=== PATIENT | male | born 1955 | race Caucasian/White ===

== ENCOUNTER 2017-09-07 20:54 | Observation (INO) | payer OTHER ==
[~2017-09-07] VITALS: Ht 177.8 cm; Wt 75.0 kg
[~2017-09-07 20:54] MED LIST: ACYC1CAP16 PO; CITA-48 PO; DILA50CH CHEW; HYDR-3533 PO; IBUP600T26 PO; KEPP750T; MELO7.5S; TRAZ100 PO
[2017-09-07 21:23] VITALS: BP 114/76; PULSE 78; RESP 20; TEMP 97.8; O2SAT 99
[2017-09-07] MEDS ORDERED: SODIUM CHLORIDE 0.9% FLUSH 10 ML FLUSH IV FLUSH PRN (22:00)
--- NOTE | 2017-09-07 22:23 | RADRPT ---
EXAM DATE/TIME: 09/07/2017 22:04 [facility] COMPARISON: CT BRAIN W/O CONTRAST, November 30, 2015, 2:26. INDICATIONS : Trauma, fall. RADIATION DOSE: 34.80 CTDIvol (mGy) MEDICAL HISTORY : Seizures. Prior subdural hematoma. SURGICAL HISTORY : None. ENCOUNTER: Initial ACUITY: 1 day PAIN SCALE: 5/10 LOCATION: cranial TECHNIQUE: Multiple contiguous axial images were obtained of the head. Using automated exposure control and adj ustment of the mA and/or kV according to patient size, radiation dose was kept as low as reasonably a chievable to obtain optimal diagnostic quality images. DICOM format image data is available electro nically for review and comparison. FINDINGS: CEREBRUM: Mild ventriculomegaly. No evidence of midline shift, mass lesion, hemorrhage or acute infarction. N o extra-axial fluid collections are seen. There is an old right frontal lobe infarct. POSTERIOR FOSSA: The cerebellum and brainstem are intact. The 4th ventricle is midline. The cerebellopontine angle i s unremarkable. EXTRACRANIAL: Left occipital scalp contusion. SKULL: No acute skeletal abnormality demonstrated. Right craniotomy changes are again noted. CONCLUSION: 1. No bleed or other acute intracranial abnormality. 2. Left occipital scalp hematoma. 3. Old right frontal lobe infarct. 4. Mild diffuse ventriculomegaly has developed since the prior study. Robin Escudero MD on September 07, 2017 at 22:18 Board Certified Radiologist. This report was verified electronically.
--- NOTE | 2017-09-07 22:28 | RADRPT ---
EXAM DATE/TIME: 09/07/2017 22:04 [facility] COMPARISON: CT CERVICAL SPINE W/O CONTRAST, July 27, 2015, 21:21. INDICATIONS : Trauma, fall. RADIATION DOSE: 13.89 CTDIvol (mGy) MEDICAL HISTORY : None SURGICAL HISTORY : None. ENCOUNTER: Initial ACUITY: 1 day PAIN SCALE: 5/10 LOCATION: neck TECHNIQUE: Volumetric scanning of the cervical spine was performed. Multiplanar reconstructions in the sagittal, coronal and oblique axial planes were performed. Using automated exposure control and adjustment o f the mA and/or kV according to patient size, radiation dose was kept as low as reasonably achievable to obtain optimal diagnostic quality images. DICOM format image data is available electronically f or review and comparison. FINDINGS: There is no fracture or subluxation of the cervical spine. Vertebral bodies have normal height. Moderate to severe disc space narrowing with small, broad posterior disc osteophyte complexes and guillermo ateral uncovertebral and facet osteoarthritis noted, moderate at C4/C5, C5/C6 and C6/C7, mild to mode rate at C3/C4. There is left foraminal stenosis at C4/C5 and right foraminal stenosis at C5/C6 and C6 /C7. No high-grade spinal stenosis is demonstrated. Paravertebral soft tissues are within normal limits. CONCLUSION: Intact cervical spine. Multilevel degenerative changes are again noted and appear similar to the [facility] CT. Robin Escudero MD on September 07, 2017 at 22:24 Board Certified Radiologist. This report was verified electronically.
[2017-09-07] MEDS ORDERED: LIDOCAINE HCL 1% PF 30 ML VIAL ONE (22:52)
[2017-09-07 22:59] VITALS: BP 125/82; PULSE 85; RESP 17; O2SAT 98
[2017-09-08] VITALS (7 sets, daily range): BP systolic 101–123; BP diastolic 63–74; PULSE 67–92; RESP 16–18; TEMP 98–99; O2SAT 96–99
[2017-09-08] MEDS ORDERED: GADODIAMIDE PF 287 MG/ML 20 ML VIAL (for RAD MRI) IVCONTRAST ONE (01:29)
[2017-09-08] MEDS ORDERED: levETIRAcetam 500 MG TAB PO ONE (02:30)
[2017-09-08] MEDS ORDERED: traZODone HCL 100 MG TAB PO ONE (02:30)
[2017-09-08] MEDS ORDERED: PHENYTOIN SODIUM 100 MG CAP PO ONE (02:30)
[2017-09-08] MEDS ORDERED: oxyCODONE/ACETAMINOPHEN 5 MG/325 MG TAB PO ONE (02:45)
[2017-09-08 03:04] LABS: AUTOMATED NEUTROPHIL # 7.9 TH/MM3 (1.8-7.7); BASOPHIL # 0.1 TH/MM3 (0-0.2); BASOPHIL % 0.8 % (0.0-2.0); EOSINOPHIL % 0.4 % (0.0-4.0); HEMATOCRIT 38.9 % (39.0-51.0); HEMOGLOBIN 13.2 GM/DL (13.0-17.0); LYMPH % 8.7 % (9.0-44.0); LYMPHOCYTE # 0.9 TH/MM3 (1.0-4.8); MEAN CELL VOLUME 96.8 FL (80.0-100.0); MEAN CORPUSCULAR HEMOGLOBIN 32.9 PG (27.0-34.0); MEAN PLATELET VOLUME 8.6 FL (7.0-11.0); MONO % 10.8 % (0.0-8.0); MONOCYTE # 1.1 TH/MM3 (0-0.9); NEUT % 79.3 % (16.0-70.0); PLATELET COUNT 231 TH/MM3 (150-450); RED BLOOD COUNT 4.02 MIL/MM3 (4.50-5.90); WHITE BLOOD COUNT 9.9 TH/MM3 (4.0-11.0)
[2017-09-08] MEDS ORDERED: SODIUM CHLORIDE 0.9% FLUSH 10 ML FLUSH IV FLUSH PRN (03:30)
[2017-09-08] MEDS ORDERED: NALOXONE HCL 0.4 MG/ML AMP IV PUSH PRN (03:30)
[2017-09-08] MEDS ORDERED: ONDANSETRON HCL 4 MG/2 ML VIAL IVP PRN (03:30)
[2017-09-08 03:31] LABS: ALBUMIN 3.4 GM/DL (3.4-5.0); AST (GOT) 29 U/L (15-37); BICARBONATE 30.1 MEQ/L (21.0-32.0); BLOOD UREA NITROGEN 26 MG/DL (7-18); CALCIUM 7.9 MG/DL (8.5-10.1); CHLORIDE 99 MEQ/L (98-107); CREATININE 1.17 MG/DL (0.60-1.30); GLOMERULAR FILTRATION RATE 63 ML/MIN (>89); GLUCOSE,RANDOM 115 MG/DL (74-106); SODIUM (NA) 137 MEQ/L (136-145)
--- NOTE | 2017-09-08 03:31 | PD ---
HPI . Fall Chief Complaint: Fall Time Seen by Provider: 21:45 Travel History International Travel<30 days: No Contact w/Intl Traveler<30days: No Traveled to known affect area: No History of Present Illness HPI 62-year-old male history of traumatic brain injury from a fall he sustained approximately 4 years ago, presents status post fall this evening landing on his left posterior parietal area Jesus loss of consciousness, significant scalp injury with laceration. Patient notes feeling unsteady of gait lately significant change from his normal. Patient notes mild headache, otherwise denies any focal weakness numbness or tingling. No seizure activity noted, no incontinence no tongue biting. 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 Patient has difficulty in controlling his aggression through speech, however is otherwise an accurate historian. [facility] Past Medical History Narrative Medical Past medical history reviewed Cerebrovascular Accident: Yes (SUBDURAL HEMATOMA) Diminished Hearing: Yes (BISHOP PAIUTE ) Neurologic: Yes (HX SUBDURAL HEMATOMA) Immunizations Current: Yes Seizures: Yes Influenza Vaccination: No Past Surgical History Abdominal Surgery: Yes (HERNIA) Genitourinary Surgery: Yes (VASECTOMY) Neurologic Surgery: Yes (TBI, SUBDURAL HEMATOMA EVACUATION) Other Surgery: Yes (TBI, HERNIA, VASECTOMY) Social History Alcohol Use: Yes (occ) Tobacco Use: No Substance Use: No Allergies-Medications (Allergen,Severity, Reaction): Coded Allergies: sertraline (Unverified Allergy, Unknown, 09/07/17) Reported Meds & Prescriptions Reported Meds & Active Scripts Active Lortab 5 mg/325 mg (Hydrocodone/Acetaminophen 5 mg/325 mg) 1 Tab 1 Tab PO Q4-6H PRN Ibuprofen 600 Mg Tab 600 Mg PO TID PRN Reported Keppra (Levetiracetam) 750 Mg Tab Dilantin Infatabs (Phenytoin) 50 Mg Chw 50 Mg CHEW Meloxicam 7.5 Mg/5 Ml Kacie Trazodone Hcl (Trazodone HCl) 100 Mg Tab 100 Mg PO HS Citalopram Hydrobromide 40 Mg Tab 40 Mg PO DAILY Zovirax 200 Mg Cap (Acyclovir) 200 Mg Cap 200 Mg PO 5 TIMES A DAY Narrative Medication Allergies medications reviewed Review of Systems Except as stated in HPI: all other systems reviewed are Neg General / Constitutional: No: Fever Eyes: No: Visual changes HENT: Positive: Headaches, No: Vertigo, Lightheadedness, Neck Stiffness, Neck Pain Cardiovascular: No: Chest Pain or Discomfort Respiratory: No: Shortness of Breath Gastrointestinal: No: Abdominal Pain Genitourinary: No: Dysuria Musculoskeletal: No: Pain Skin: No Rash Neurologic: Positive: Coordination Problem, Ataxia, Headache, No: Weakness, Dizziness, Focal Abnormalities, Change in Mentation, Slurred Speech, Paresthesia , Incontinence, Seizures, Sensory Disturbance Psychiatric: No: Depression Endocrine: No: Polydipsia Hematologic/Lymphatic: No: Easy Bruising Physical Exam Narrative GENERAL: Awake and alert, oriented 3, no acute distress SKIN: Warm and dry. HEAD: Left occipital parietal scalp contusion with laceration, active bleeding EYES: Pupils equal and round. No scleral icterus. No injection or drainage. ENT: No nasal bleeding or discharge. Mucous membranes pink and moist. NECK: Trachea midline. No JVD. Supple nontender. Clear radiographically and clinically CARDIOVASCULAR: Regular rate and rhythm. S1-S2 no murmurs rubs or gallops RESPIRATORY: No accessory muscle use. Clear to auscultation. Breath sounds equal bilaterally. GASTROINTESTINAL: Abdomen soft, non-tender, nondistended. Hepatic and splenic margins not palpable. MUSCULOSKELETAL: Extremities without clubbing, cyanosis, or edema. No obvious deformities. NEUROLOGICAL: Awake and alert. No obvious cranial nerve deficits. Motor grossly within normal limits. Five out of 5 muscle strength in the arms and legs. Normal speech. PSYCHIATRIC: Labile mood associated with dramatic brain injury by expression only, patient is otherwise cooperative expressing gratitude for his care Data Data Last Documented VS Vital Signs Date Time Temp Pulse Resp B/P (MAP) Pulse Ox O2 Delivery O2 Flow Rate FiO2 09/08/17 01:11 99.0 92 18 112/69 (83) 99 Room Air Orders Orders Blood Glucose (09/07/17 21:46) Ecg Monitoring (09/07/17 21:46) Iv Access Insert/Monitor (09/07/17 21:46) Oximetry (09/07/17 21:46) Sodium Chloride 0.9% Flush (Ns Flush) (09/07/17 22:00) Ct Brain W/O Iv Contrast(Rout) (09/07/17 ) Ct Cerv Spine W/O Contrast (09/07/17 ) Lidocaine Pf 1% Inj (Xylocaine-Mpf 1% In (09/07/17 22:52) Admit Order (Ed Use Only) (09/08/17 01:26) [facility] Medical Decision Making Medical Screen Exam Complete: Yes Emergency Medical Condition: Yes Medical Record Reviewed: Yes Differential Diagnosis Scalp laceration, head injury, ataxia Narrative Course CT head performed no acute intracranial traumatic pathology noted. Patient's ventricles however are larger in size than on prior study. Occipital scalp hematoma noted Procedure: Suture closure of scalp laceration left occipital. Under strict sterile technique, wound was cleansed copiously. ED nursing and tech staff with saline, followed by peroxide and Hibiclens. Local anesthesia 1% 3 cc, 3- 0 Ethilon nylon suture interrupted 4 with closure of stellate wound. Adequate closure and hemostasis. Patient tolerated well. CT head reviewed, patient has relatively new onset ataxia as well as ventriculomegaly as noted on CT versus prior study, possible normal pressure hydrocephalus. Case discussed with hospitalist service, care plan developed. Patient to be admitted for observation status, neurology consult in the a.m. Patient's medical regimen discussed with patient's caregiver review of old on speaker and nurses room, patient given his nighttime meds, RN-year-old recorded patient's current daily medical regimen. Patient admitted under observation Diagnosis Primary Impression: Head injury Qualified Codes: S09.90XA - Unspecified injury of head, initial encounter Additional Impressions: Traumatic brain injury Qualified Codes: S06.9X9S - Unspecified intracranial injury with loss of consciousness of unspecified duration, sequela Occipital scalp laceration Qualified Codes: S01.01XA - Laceration without foreign body of scalp, initial encounter Ataxia Admitting Information Admitting Physician Requests: Observation Jovani Roberts MD Sep 08, 2017 03:31
[2017-09-08] MEDS ORDERED: DILA100C PO ×2 (03:33)
[2017-09-08] MEDS ORDERED: KEPP750T PO (03:33)
[2017-09-08] MEDS ORDERED: TRAZ100T10 PO (03:33)
[2017-09-08] MEDS ORDERED: MELO7.5T27 PO (03:33)
[2017-09-08] MEDS ORDERED: CITA10TA4 PO (03:33)
[2017-09-08 03:34] LABS: ALKALINE PHOSPHATASE 131 U/L (45-117); ALT (GPT) 24 U/L (12-78); PHENYTOIN (DILANTIN) 13.2 MCG/ML (10.0-20.0); TOTAL BILIRUBIN ADULT 0.4 MG/DL (0.2-1.0); TOTAL PROTEIN 6.4 GM/DL (6.4-8.2)
--- NOTE | 2017-09-08 04:27 | HHI.HP ---
[facility] Admission Diagnosis Ventriculomegaly, possible NPH Diagnoses: (1) Cerebral ventriculomegaly (2) NPH (normal pressure hydrocephalus) (3) Occipital scalp laceration Chief Complaint: Fall with scalp laceration Travel History International Travel<30 Days: No Contact w/Intl Traveler <30 Da: No Traveled to Known Affected Are: No History of Present Illness Mr. Bartlett is a 62 y/o male with a history of TBI with subsequent seizures and CVA with residual left sided weakness who presented to the ER on 09/07/16 following a fall at home. He suffered a scalp laceration and presented to the ED. He denies syncopal episode and chest pain or sob prior to fall. A head CT was performed showing mild diffuse ventriculomegaly and the patient also reports increasing sense of imbalance and dizziness as well as multiple falls over the past few weeks and was admitted for observation and neurology consultation to evaluate for NPH. The patient denies any recent fever, chills, chest pain, shortness of breath, nausea, vomiting, or diarrhea. Review of Systems Except as stated in HPI: all other systems reviewed are Neg Past Family Social History Past Medical History TBI following a fall off a ladder 4 years ago Seizures following TBI CVA with residual left sided weakness . Past Surgical History Craniotomy Left knee surgery Hernia repair Vasectomy . Reported Medications Reported Meds & Active Scripts Active Reported Meloxicam 7.5 Mg Tab 7.5 Mg PO DAILY Citalopram (Citalopram Hydrobromide) 10 Mg Tab 10 Mg PO DAILY Keppra (Levetiracetam) 750 Mg Tab 750 Mg PO BID Dilantin (Phenytoin Extended) 100 Mg Cap 100 Mg PO HS Dilantin (Phenytoin Extended) 100 Mg Cap 3 Tab PO DAILY@0600 Trazodone (Trazodone HCl) 100 Mg Tablet 100 Mg PO HS . Allergies: Coded Allergies: sertraline (Unverified Allergy, Unknown, 09/07/17) Family History unable to obtain - patient got increasingly aggressive and angry because I was "asking too many questions" and he was having some difficulty with recall . Social History Alcohol: occasional . Physical Exam Vital Signs Vital Signs Date Time Temp Pulse Resp B/P (MAP) Pulse Ox O2 Delivery O2 Flow Rate FiO2 09/08/17 01:11 99.0 92 18 112/69 (83) 99 Room Air 09/07/17 22:59 85 17 125/82 (96) 98 Room Air 09/07/17 21:23 97.8 78 20 114/76 (89) 99 Physical Exam GENERAL: This is a thin male patient, in no apparent distress.Temporal wasting noted bilaterally. SKIN: No rashes. Cool and dry. Bilateral upper extremities with scattered bruising in various stages of healing. States he's suffered easy bruising since TBI. HEAD: Left occipital laceration with sutures; hemostasis at site, hematoma noted. EYES: No scleral icterus. No injection or drainage. ENT: Nose without bleeding, purulent drainage. NECK: Trachea midline. No JVD. CARDIOVASCULAR: Regular rate and rhythm without murmurs, gallops, or rubs. RESPIRATORY: Clear to auscultation. Breath sounds equal bilaterally. No wheezes , rales, or rhonchi. GASTROINTESTINAL: Abdomen soft, non-tender, nondistended. No guarding. MUSCULOSKELETAL: Extremities without clubbing, cyanosis, or edema. No calf tenderness. NEUROLOGICAL: Awake and alert. Patient got increasingly aggressive and angry and was having some difficulty with recall . Laboratory Laboratory Tests Test 09/08/17 02:50 White Blood Count 9.9 Red Blood Count 4.02 Hemoglobin 13.2 Hematocrit 38.9 Mean Corpuscular Volume 96.8 Mean Corpuscular Hemoglobin 32.9 Mean Corpuscular Hemoglobin Concent 34.0 Red Cell Distribution Width 14.0 Platelet Count 231 Mean Platelet Volume 8.6 Neutrophils (%) (Auto) 79.3 Lymphocytes (%) (Auto) 8.7 Monocytes (%) (Auto) 10.8 Eosinophils (%) (Auto) 0.4 Basophils (%) (Auto) 0.8 Neutrophils # (Auto) 7.9 Lymphocytes # (Auto) 0.9 Monocytes # (Auto) 1.1 Eosinophils # (Auto) 0.0 Basophils # (Auto) 0.1 CBC Comment DIFF FINAL Differential Comment Blood Urea Nitrogen 26 Creatinine 1.17 Random Glucose 115 Total Protein 6.4 Albumin 3.4 Calcium Level 7.9 Alkaline Phosphatase 131 Aspartate Amino Transf (AST/SGOT) 29 Alanine Aminotransferase (ALT/SGPT) 24 Total Bilirubin 0.4 Sodium Level 137 Potassium Level 3.8 Chloride Level 99 Carbon Dioxide Level 30.1 Anion Gap 8 Estimat Glomerular Filtration Rate 63 Phenytoin (Dilantin) Level 13.2 Result Diagram: 09/08/17 0250 09/08/17 0250 Imaging Last Impressions Head CT 09/07/17 0000 Signed Impressions: Service Date/Time: August 22:04 - CONCLUSION: 1. No bleed or other acute intracranial abnormality. 2. Left occipital scalp hematoma. 3. Old right frontal lobe infarct. 4. Mild diffuse ventriculomegaly has developed since the prior study. Robin Escudero MD Cervical Spine CT 09/07/17 0000 Signed Impressions: Service Date/Time: August 22:04 - CONCLUSION: Intact cervical spine. Multilevel degenerative changes are again noted and appear similar to the comparison CT. Robin Escudero MD . Caprini VTE Risk Assessment Caprini VTE Risk Assessment: Mod/High Risk (score >= 2) Caprini Risk Assessment Model Point Value = 1 Point Value = 2 Point Value = 3 Point Value = 5 Age 41-60 Minor surgery BMI > 25 kg/m2 Swollen legs Varicose veins or History of unexplained or recurrent spontaneous Oral contraceptives or hormone replacement Sepsis (< 1 month) Serious lung disease, including pneumonia (< 1 month) Abnormal pulmonary function Acute myocardial infarction Congestive heart failure (< 1 month) History of inflammatory bowel disease Medical patient at bed rest Age 61-74 Arthroscopic surgery Major open surgery (> 45 min) Laparoscopic surgery (> 45 min) Malignancy Confined to bed (> 72 hours) Immobilizing plaster cast Central venous access Age >= 75 History of VTE Family history of VTE Factor V Leiden Prothrombin [id number] Lupus anticoagulant Anticardiolipin antibodies Elevated serum homocysteine Heparin-induced thrombocytopenia Other congenital or acquired thrombophilia Stroke (< 1 month) Elective arthroplasty Hip, pelvis, or leg fracture Acute spinal cord injury (< 1 month) Prophylaxis Regimen Total Risk Factor Score Risk Level Prophylaxis Regimen 0-1 Low Early ambulation 2 Moderate Order ONE of the following: *Sequential Compression Device (SCD) *Heparin 5000 units SQ BID 3-4 Higher Order ONE of the following medications: *Heparin 5000 units SQ TID *Enoxaparin/Lovenox 40 mg SQ daily (WT < 150 kg, CrCl > 30 mL/min) *Enoxaparin/Lovenox 30 mg SQ daily (WT < 150 kg, CrCl > 10-29 mL/min) *Enoxaparin/Lovenox 30 mg SQ BID (WT < 150 kg, CrCl > 30 mL/min) AND/OR *Sequential Compression Device (SCD) 5 or more Highest Order ONE of the following medications: *Heparin 5000 units SQ TID (Preferred with Epidurals) *Enoxaparin/Lovenox 40 mg SQ daily (WT < 150 kg, CrCl > 30 mL/min) *Enoxaparin/Lovenox 30 mg SQ daily (WT < 150 kg, CrCl > 10-29 mL/min) *Enoxaparin/Lovenox 30 mg SQ BID (WT < 150 kg, CrCl > 30 mL/min) AND *Sequential Compression Device (SCD) Assessment and Plan Problem List: (1) NPH (normal pressure hydrocephalus) ICD Code: G91.2 - (Idiopathic) normal pressure hydrocephalus (2) Cerebral ventriculomegaly ICD Code: G93.89 - Other specified disorders of brain (3) Seizure disorder ICD Code: G40.909 - Epilepsy, unspecified, not intractable, without status epilepticus (4) Occipital scalp laceration ICD Code: S01.01XA - Laceration without foreign body of scalp, initial encounter Status: Acute Assessment and Plan Mr. Bartlett is a 62 y/o male with a history of TBI with subsequent seizures who presented to the ER on 09/07/16 following a fall at home. He suffered a scalp laceration and presented to the ED. He denies syncopal episode and chest pain or sob prior to fall. A head CT was performed showing mild diffuse ventriculomegaly and the patient also reports increasing sense of imbalance and dizziness as well as multiple falls over the past few weeks and was admitted for observation and neurology consultation to evaluate for NPH. Ventriculomegaly Recent falls r/o NPH - Head CT - no bleeding or other intracranial abnormalities; left occipital scalp hematoma; old right frontal lobe infarct; mild diffuse ventriculomegaly - Consult neurology - assistance appreciated - Neuro checks and VS q4h Seizures - awaiting medication dosage verification to reconcile home medications - Seizure precautions - Lorazepam 1 mg q15 mins seizure activity Left occipital scalp laceration - sutured in ED - monitor DVT prophylaxis - SCDs/TEDs . Discussed Condition With Dr. Rhodes and patient . Problem Qualifiers (1) Occipital scalp laceration: Qualified Codes: S01.01XA - Laceration without foreign body of scalp, initial encounter Kavitha Clark Sep 08, 2017 04:27
[2017-09-08] MEDS ORDERED: LORazepam 2 MG/ML VIAL IV PUSH PRN (05:30)
[2017-09-08] MEDS ORDERED: PILL SPLITTER OTHER PRN (08:45)
[2017-09-08] MEDS: PHENYTOIN SODIUM 100 MG CAP PO SCH ×2 (08:53→21:45)
[2017-09-08] MEDS: levETIRAcetam 500 MG TAB PO SCH ×2 (08:54→21:44)
[2017-09-08] MEDS: CITALOPRAM HYDROBROMIDE 20 MG TAB PO SCH (08:54)
[2017-09-08] MEDS: oxyCODONE/ACETAMINOPHEN 5 MG/325 MG TAB PO PRN ×3 (08:56→21:44)
[2017-09-08] MEDS: SODIUM CHLORIDE 0.9% FLUSH 10 ML FLUSH IV FLUSH SCH ×2 (09:00→21:45)
[2017-09-08] MEDS: NEOMYCIN/POLYMYXIN/BACITRACIN OINT 15 GM TUBE TOPICAL SCH (09:00)
--- NOTE | 2017-09-08 12:30 | HHI.PR ---
Subjective Remarks Follow-up ventriculomegaly. Denies headache, dizziness, incontinence and focal weakness. Discussed with RN Objective Vitals Vital Signs Date Time Temp Pulse Resp B/P (MAP) Pulse Ox O2 Delivery O2 Flow Rate FiO2 09/08/17 08:00 98.1 86 18 123/71 (88) 97 09/08/17 06:30 98.2 90 16 101/66 (78) 96 09/08/17 05:10 98.8 87 16 101/70 (80) 97 Room Air 09/08/17 01:11 99.0 92 18 112/69 (83) 99 Room Air 09/07/17 22:59 85 17 125/82 (96) 98 Room Air 09/07/17 21:23 97.8 78 20 114/76 (89) 99 Result Diagram: 09/08/17 0250 09/08/17 0250 Imaging Last Impressions Head CT 09/07/17 0000 Signed Impressions: Service Date/Time: August 22:04 - CONCLUSION: 1. No bleed or other acute intracranial abnormality. 2. Left occipital scalp hematoma. 3. Old right frontal lobe infarct. 4. Mild diffuse ventriculomegaly has developed since the prior study. Robin Escudero MD Cervical Spine CT 09/07/17 0000 Signed Impressions: Service Date/Time: August 22:04 - CONCLUSION: Intact cervical spine. Multilevel degenerative changes are again noted and appear similar to the comparison CT. Robin Escudero MD Objective Remarks GENERAL: This is a thin male patient, in no apparent distress.Temporal wasting noted bilaterally. SKIN: No rashes. Cool and dry. Bilateral upper extremities with scattered bruising in various stages of healing. States he's suffered easy bruising since TBI. CARDIOVASCULAR: Regular rate and rhythm without murmurs, gallops, or rubs. RESPIRATORY: Clear to auscultation. Breath sounds equal bilaterally. No wheezes , rales, or rhonchi. GASTROINTESTINAL: Abdomen soft, non-tender, nondistended. No guarding. MUSCULOSKELETAL: Extremities without clubbing, cyanosis, or edema. No calf tenderness. NEUROLOGICAL: Awake and alert. Moving all extremity Procedures none A/P Problem List: (1) NPH (normal pressure hydrocephalus) ICD Code: G91.2 - (Idiopathic) normal pressure hydrocephalus (2) Cerebral ventriculomegaly ICD Code: G93.89 - Other specified disorders of brain (3) Seizure disorder ICD Code: G40.909 - Epilepsy, unspecified, not intractable, without status epilepticus (4) Occipital scalp laceration ICD Code: S01.01XA - Laceration without foreign body of scalp, initial encounter Status: Acute Assessment and Plan Mr. Bartlett is a 62 y/o male with a history of TBI with subsequent seizures who presented to the ER on 09/07/16 following a fall at home. He suffered a scalp laceration and presented to the ED. He denies syncopal episode and chest pain or sob prior to fall. A head CT was performed showing mild diffuse ventriculomegaly and the patient also reports increasing sense of imbalance and dizziness as well as multiple falls over the past few weeks and was admitted for observation and neurology consultation to evaluate for NPH. Ventriculomegaly Recent falls r/o NPH - Head CT - no bleeding or other intracranial abnormalities; left occipital scalp hematoma; old right frontal lobe infarct; mild diffuse ventriculomegaly - Consult neurology - assistance appreciated. Obtain MRI. - Neuro checks and VS q4h. Fall precautions. Physical therapy evaluation Seizures - Continue home AED - Seizure precautions - Lorazepam 1 mg q15 mins seizure activity Left occipital scalp laceration - sutured in ED - monitor DVT prophylaxis - SCDs/TEDs . Discharge Planning Discharge when cleared by neurology Problem Qualifiers (1) Occipital scalp laceration: Qualified Codes: S01.01XA - Laceration without foreign body of scalp, initial encounter Valdo Oswald MD Sep 08, 2017 12:30
--- NOTE | 2017-09-08 15:14 | RADRPT ---
EXAM DATE/TIME: 09/08/2017 14:26 [facility] COMPARISON: CT BRAIN W/O CONTRAST, November 30, 2015, 2:26. CT BRAIN W/O CONTRAST, September 07, 2017, 22:04. INDICATIONS : Hydrocephalus, trauma. CONTRAST: 15 cc Omniscan (gadodiamide) IV MEDICAL HISTORY : Seizures, prior subdural hematoma SURGICAL HISTORY : Craniotomy. Inguinal hernia repair. ENCOUNTER: Initial ACUITY: 1 day PAIN SCORE: 4/10 LOCATION: cranial TECHNIQUE: Multiplanar, multisequence MRI of the brain was performed both prior to and following the administrat ion of paramagnetic contrast. FINDINGS: CEREBRUM: An area of encephalomalacia involving the right frontal lobe suggesting prior infarction. Ventricles are prominent which are slightly larger from the prior exam in 2016. No evidence of midline shift, ma ss lesion, hemorrhage or acute infarction. No extraaxial fluid collections are seen. The pituitary gland and suprasellar cistern are normal in configuration. WHITE MATTER: No significant signal abnormalities are seen in the white matter. POSTERIOR FOSSA: The cerebellum and brainstem are intact. The 4th ventricle is midline. The cerebellopontine angle is unremarkable. The cerebellar tonsils are normal in position. DIFFUSION IMAGING: No focal areas of restricted diffusion are seen. No evidence of acute infarction. EXTRACRANIAL: The visualized portions of the orbits and paranasal sinuses are unremarkable. POST-CONTRAST: There is mild linear enhancement involving the dura bilaterally but more pronounced on the right over lying the frontal lobe. No mass. No abnormal enhancement otherwise. CONCLUSION: 1. No acute intracranial abnormality. 2. Mild enhancement of the dura particularly overlying the right frontal lobe. This likely is postsur gical in nature. I cannot completely exclude an acute meningitis but this is felt much less likely. 3. Mild prominence of the ventricular system which is minimally larger from the prior 2016 exams. Thi s may relate to more centralized forms of atrophy. No obstructing mass observed. Ad Marc Jr., MD on September 08, 2017 at 15:04 Board Certified Radiologist. This report was verified electronically.
[2017-09-08] MEDS: ACETAMINOPHEN 325 MG TAB PO PRN (19:01)
[2017-09-08] MEDS: traZODone HCL 100 MG TAB PO SCH (21:44)
[2017-09-09] MEDS: oxyCODONE/ACETAMINOPHEN 5 MG/325 MG TAB PO PRN ×3 (03:48→17:46)
[2017-09-09 04:22] VITALS: BP 110/71; PULSE 69; RESP 17; TEMP 98; O2SAT 96
[2017-09-09 07:03] LABS: AUTOMATED NEUTROPHIL # 2.3 TH/MM3 (1.8-7.7); BASOPHIL % 1.1 % (0.0-2.0); EOSINOPHIL # 0.1 TH/MM3 (0-0.4); EOSINOPHIL % 1.3 % (0.0-4.0); HEMATOCRIT 36.1 % (39.0-51.0); HEMOGLOBIN 12.4 GM/DL (13.0-17.0); LYMPH % 26.8 % (9.0-44.0); LYMPHOCYTE # 1.1 TH/MM3 (1.0-4.8); MEAN CELL VOLUME 97.8 FL (80.0-100.0); MEAN CORPUSCULAR HEMOGLOBIN 33.5 PG (27.0-34.0); MEAN CORPUSCULAR HGB CONC 34.2 % (32.0-36.0); MEAN PLATELET VOLUME 8.5 FL (7.0-11.0); MONO % 15.1 % (0.0-8.0); MONOCYTE # 0.6 TH/MM3 (0-0.9); NEUT % 55.7 % (16.0-70.0); PLATELET COUNT 199 TH/MM3 (150-450); RED CELL DISTRIBUTION WIDTH 13.7 % (11.6-17.2); WHITE BLOOD COUNT 4.1 TH/MM3 (4.0-11.0)
[2017-09-09 07:14] VITALS: BP 102/72; PULSE 73; RESP 18; TEMP 98; O2SAT 97
[2017-09-09] MEDS: PHENYTOIN SODIUM 100 MG CAP PO SCH ×2 (07:40→22:04)
[2017-09-09 07:42] LABS: BICARBONATE 27.8 MEQ/L (21.0-32.0); CALCIUM 8.6 MG/DL (8.5-10.1); CREATININE 0.5 MG/DL (0.60-1.30)
--- NOTE | 2017-09-09 08:34 | RADRPT ---
EXAM DATE/TIME: 09/09/2017 08:10 [facility] COMPARISON: No previous studies available for comparison. INDICATIONS : Gait disorder. MEDICAL HISTORY : Seizures. TBI. SURGICAL HISTORY : Craniotomy. Inguinal hernia repair. Left knee surgery. ENCOUNTER: Initial ACUITY: 1 day PAIN SCORE: 0/10 LOCATION: [facility] TECHNIQUE: Multiplanar multisequence MRI of the thoracic spine was performed. FINDINGS: [facility] imaging demonstrates multilevel degenerative disc changes present within the cervical spine wit h narrowing of the cervical canal from the level of C4-C6. [facility]ist imaging also demonstrates degenerati ve changes within the lumbar spine with spinal canal narrowing at the level of L4/L5 where there is g rade 1 anterolisthesis and a posterior disc protrusion. VERTEBRA: Normal vertebral body height. Homogeneous marrow signal. ALIGNMENT: Normal. CORD: Normal position and configuration. T1-T2: Normal. T2-T3: The thecal sac has a normal diameter. No evidence of disc bulge or protrusion. T3-T4: The thecal sac has a normal diameter. No evidence of disc bulge or protrusion. T4-T5: The thecal sac has a normal diameter. No evidence of disc bulge or protrusion. T5-T6: The thecal sac has a normal diameter. No evidence of disc bulge or protrusion. T6-T7: The thecal sac has a normal diameter. No evidence of disc bulge or protrusion. T7-T8: The thecal sac has a normal diameter. No evidence of disc bulge or protrusion. T8-T9: The thecal sac has a normal diameter. No evidence of disc bulge or protrusion. T9-T10: The thecal sac has a normal diameter. No evidence of disc bulge or protrusion. T10-T11: The thecal sac has a normal diameter. No evidence of disc bulge or protrusion. T11-T12: The thecal sac has a normal diameter. No evidence of disc bulge or protrusion. T12-L1: The thecal sac has a normal diameter. No evidence of disc bulge or protrusion. CONCLUSION: No abnormality is identified within the thoracic spine. Degenerative change is seen within the cervic al spine and within the lumbar spine contribute to areas of spinal canal narrowing.. Iram Valadez MD on September 09, 2017 at 8:27 Board Certified Radiologist. This report was verified electronically.
--- NOTE | 2017-09-09 08:58 | RADRPT ---
EXAM DATE/TIME: 09/09/2017 08:10 [facility] COMPARISON: No previous studies available for comparison. INDICATIONS : Gait disorder. MEDICAL HISTORY : Seizures. TBI SURGICAL HISTORY : Craniotomy. Inguinal hernia repair. Left knee surgery. ENCOUNTER: Initial ACUITY: 1 day PAIN SCORE: 0/10 LOCATION: [facility] TECHNIQUE: Multiplanar, multisequence MRI examination of the cervical spine was performed. FINDINGS: VERTEBRAE: Normal vertebral body height. Homogeneous marrow signal. ALIGNMENT: There is exaggerated lordosis of the cervical spine with grade 1 retrolisthesis of C4 on C5 and grade 1 anterolisthesis of C6 on C7. CORD: There is narrowing of the spinal canal present from C4-C6 without evidence of cord compression. The c ord maintains normal morphology and signal. POST FOSSA: The cerebellar tonsils are normal in position. C2-C3: The thecal sac has a normal configuration. There is no evidence of disc herniation or spinal canal s tenosis. The neural foramina are patent bilaterally. C3-C4: Severe distress patient is and with a posterior disc osteophyte and uncovertebral joint hypertrophy. Mild right-sided neural foraminal narrowing. C4-C5: Disc desiccation and disc space narrowing with posterior disc osteophyte complex which narrows the sp inal canal in AP dimension. Uncovertebral joint hypertrophy contributing to mild to moderate neurofor aminal narrowing. C5-C6: Severe disc desiccation and disc space narrowing with a posterior disc osteophyte complex abutting th e anterior aspect of the thecal sac. Uncovertebral joint hypertrophy contributing to moderate to jaswant re right-sided neural foraminal narrowing and moderate on the left. C6-C7: Disc desiccation and disc space narrowing with a posterior disc osteophyte complex and uncovertebral joint hypertrophy contributing to mild narrowing of the spinal canal in AP dimension and moderate to severe bilateral neural foraminal narrowing. C7-T1: The thecal sac has a normal configuration. There is no evidence of disc herniation or spinal canal s tenosis. The neural foramina are patent bilaterally. CONCLUSION: Exaggerated lordosis of the cervical spine with multilevel severe degenerative disc changes resulting in spinal canal narrowing from C4-C6 without evidence of cord compression. Multiple levels of neural foraminal narrowing. No cord abnormality noted.. Iram Valadez MD on September 09, 2017 at 8:51 Board Certified Radiologist. This report was verified electronically.
[2017-09-09] MEDS: SODIUM CHLORIDE 0.9% FLUSH 10 ML FLUSH IV FLUSH SCH ×2 (09:50→22:04)
[2017-09-09] MEDS: levETIRAcetam 500 MG TAB PO SCH ×2 (09:50→22:04)
[2017-09-09] MEDS: CITALOPRAM HYDROBROMIDE 20 MG TAB PO SCH (09:50)
--- NOTE | 2017-09-09 11:05 | HHI.PR ---
Subjective Remarks Follow-up falls. Patient has no complaints he wants to be discharged. PT recommends rehabilitation. Case management consulted. Objective Vitals Vital Signs Date Time Temp Pulse Resp B/P (MAP) Pulse Ox O2 Delivery O2 Flow Rate FiO2 09/09/17 07:14 98.0 73 18 102/72 (82) 97 09/09/17 04:22 98.0 69 17 110/71 (84) 96 09/08/17 23:26 98.0 67 16 107/68 (81) 97 09/08/17 20:50 98.4 82 16 123/74 (90) 98 09/08/17 16:00 98.3 88 17 120/63 (82) 97 Result Diagram: 09/09/17 0635 09/09/17 0635 Imaging Last Impressions Thoracic Spine MRI 09/09/17 0000 Signed Impressions: Service Date/Time: Saturday, September 09, 2017 08:10 - CONCLUSION: No abnormality is identified within the thoracic spine. Degenerative change is seen within the cervical spine and within the lumbar spine contribute to areas of spinal canal narrowing.. Iram Valadez MD Cervical Spine MRI 09/09/17 0000 Signed Impressions: Service Date/Time: Saturday, September 09, 2017 08:10 - CONCLUSION: Exaggerated lordosis of the cervical spine with multilevel severe degenerative disc changes resulting in spinal canal narrowing from C4-C6 without evidence of cord compression. Multiple levels of neural foraminal narrowing. No cord abnormality noted.. Iram Valadez MD Brain MRI 09/08/17 0000 Signed Impressions: Service Date/Time: Friday, September 08, 2017 14:26 - CONCLUSION: 1. No acute intracranial abnormality. 2. Mild enhancement of the dura particularly overlying the right frontal lobe. This likely is postsurgical in nature. I cannot completely exclude an acute meningitis but this is felt much less likely. 3. Mild prominence of the ventricular system which is minimally larger from the prior 2016 exams. This may relate to more centralized forms of atrophy. No obstructing mass observed. Ad Marc Jr., MD Head CT 09/07/17 0000 Signed Impressions: Service Date/Time: August 22:04 - CONCLUSION: 1. No bleed or other acute intracranial abnormality. 2. Left occipital scalp hematoma. 3. Old right frontal lobe infarct. 4. Mild diffuse ventriculomegaly has developed since the prior study. Robin Escudero MD Cervical Spine CT 09/07/17 0000 Signed Impressions: Service Date/Time: August 22:04 - CONCLUSION: Intact cervical spine. Multilevel degenerative changes are again noted and appear similar to the comparison CT. Robin Escudero MD Objective Remarks GENERAL: This is a thin male patient, in no apparent distress.Temporal wasting noted bilaterally. SKIN: No rashes. Cool and dry. Bilateral upper extremities with scattered bruising in various stages of healing. States he's suffered easy bruising since TBI. CARDIOVASCULAR: Regular rate and rhythm without murmurs, gallops, or rubs. RESPIRATORY: Clear to auscultation. Breath sounds equal bilaterally. No wheezes , rales, or rhonchi. GASTROINTESTINAL: Abdomen soft, non-tender, nondistended. No guarding. MUSCULOSKELETAL: Extremities without clubbing, cyanosis, or edema. No calf tenderness. NEUROLOGICAL: Awake and alert. Moving all extremity Procedures none A/P Problem List: (1) NPH (normal pressure hydrocephalus) ICD Code: G91.2 - (Idiopathic) normal pressure hydrocephalus (2) Cerebral ventriculomegaly ICD Code: G93.89 - Other specified disorders of brain (3) Seizure disorder ICD Code: G40.909 - Epilepsy, unspecified, not intractable, without status epilepticus (4) Occipital scalp laceration ICD Code: S01.01XA - Laceration without foreign body of scalp, initial encounter Status: Acute Assessment and Plan Mr. Bartlett is a 62 y/o male with a history of TBI with subsequent seizures who presented to the ER on 09/07/16 following a fall at home. He suffered a scalp laceration and presented to the ED. He denies syncopal episode and chest pain or sob prior to fall. A head CT was performed showing mild diffuse ventriculomegaly and the patient also reports increasing sense of imbalance and dizziness as well as multiple falls over the past few weeks and was admitted for observation and neurology consultation to evaluate for NPH. Ventriculomegaly Recent falls - Head CT - no bleeding or other intracranial abnormalities; left occipital scalp hematoma; old right frontal lobe infarct; mild diffuse ventriculomegaly. Brain MRI with no significant hydrocephalus - Consult neurology - assistance appreciated. Cervical and thoracic spine MRI with no cord compression. Follow-up pending RPR - Neuro checks and VS q4h. Fall precautions. Physical therapy evaluation recommends rehabilitation Seizures - Continue home AED - Seizure precautions - Lorazepam 1 mg q15 mins seizure activity Left occipital scalp laceration - sutured in ED - monitor DVT prophylaxis - SCDs/TEDs . Discharge Planning Discharge patient to care home facility Condition on discharge: Improved Regular Diet as tolerated Ad Mariel activity no driving Rx written: None Follow-up with primary care physician and neurology Problem Qualifiers (1) Occipital scalp laceration: Qualified Codes: S01.01XA - Laceration without foreign body of scalp, initial encounter Valdo Oswald MD Sep 09, 2017 11:05
[2017-09-09 11:24] VITALS: BP 118/70; PULSE 80; RESP 18; TEMP 98.6; O2SAT 97
--- NOTE | 2017-09-09 11:25 | MB ---
cc: ROMMEL CAM M.D. DATE OF CONSULTATION: 09/09/2017. REASON FOR CONSULTATION: He is a 62-year-old seen in neurological consultation because of recurrent falls. HISTORY OF PRESENT ILLNESS: The patient has a history of a traumatic brain injury in 2012 when he fell off a ladder. He was treated with right craniotomy. The current CT suggested the possibility of ventriculomegaly. The patient admits to some difficulty with balance and had another fall at home. Apparent history of seizures and he has been on Dilantin with a level being 13.2. His Dilantin dose is 100 milligrams at bedtime along with 100 milligrams, three capsules at 06:00 a.m.. He is also on Keppra 750 twice a day, trazodone, citalopram and meloxicam. He was reporting no seizures. PHYSICAL EXAMINATION: On exam, I also saw him to be emotional, somewhat aggressive and angry behavior. He is irritated with questions. Intermittently he cooperated. He was oriented to the date, month and year. He has full ocular movements. Visual mccracken are full. Slight left hemiparesis. Reflexes are brisk at the knees, trace at the ankles, 1+ at the elbows. Plantar response is extensor bilaterally. Sensory exam is grossly intact. LABORATORY STUDIES: CBC unremarkable. Sodium, potassium normal. Glucose 115, BUN 26, creatinine 1.17, Dilantin 13.2. IMAGING STUDIES: CT cervical spine is stable. MRI brain: no acute abnormality, dural enhancement on the right frontal lobe which is postsurgical. The CT brain showed this right frontal area of encephalomalacia. This is confirmed on the MRI brain. ASSESSMENT: 1. Recurrent falls. 2. Status post traumatic brain injury with right frontal encephalomalacia and status post craniotomy in 2012. I really do not see an obvious significant hydrocephalus type of picture. I am going to request an MRI thoracic and cervical spine because of his gait and balance disorder. I will run additional labs. His Dilantin level was 13.2, therefore, he is not really toxic. I will check a B12 and RPR and also run a CPK. Otherwise he can be followed as an outpatient. Thank you for asking us to assist in his care. MD CARMEN Byrd/LEVI /7:10 AM /11:14 AM
[2017-09-09] MEDS ORDERED: TRIPOIN TOPICAL (11:36)
[2017-09-09] MEDS: NEOMYCIN/POLYMYXIN/BACITRACIN OINT 15 GM TUBE TOPICAL SCH (12:26)
[2017-09-09 15:23] VITALS: BP 148/84; PULSE 106; RESP 18; TEMP 98; O2SAT 99
[2017-09-09 21:07] VITALS: BP 125/72; PULSE 78; RESP 18; TEMP 98.2; O2SAT 97
[2017-09-09] MEDS: traZODone HCL 100 MG TAB PO SCH (22:04)
[2017-09-10 00:27] VITALS: BP 110/72; PULSE 76; RESP 17; TEMP 97.9; O2SAT 97
[2017-09-10] MEDS: PHENYTOIN SODIUM 100 MG CAP PO SCH ×2 (06:08→20:08)
[2017-09-10 07:37] VITALS: BP 116/73; PULSE 65; RESP 18; TEMP 97.8; O2SAT 98
[2017-09-10] MEDS: levETIRAcetam 500 MG TAB PO SCH ×2 (08:42→20:09)
[2017-09-10] MEDS: CITALOPRAM HYDROBROMIDE 20 MG TAB PO SCH (08:42)
[2017-09-10] MEDS: ACETAMINOPHEN 325 MG TAB PO PRN ×3 (08:43→23:44)
[2017-09-10] MEDS: SODIUM CHLORIDE 0.9% FLUSH 10 ML FLUSH IV FLUSH SCH ×2 (09:00→20:09)
--- NOTE | 2017-09-10 10:42 | HHI.PR ---
Subjective Remarks Follow-up ventriculomegaly. Denies headache, dizziness and incontinence. Does not want bowel regimen states he just had prune juice. Discussed with RN and case management, patient stable for discharge awaiting [place] [facility] placement Objective Vitals Vital Signs Date Time Temp Pulse Resp B/P (MAP) Pulse Ox O2 Delivery O2 Flow Rate FiO2 09/10/17 07:37 97.8 65 18 116/73 (87) 98 09/10/17 00:27 97.9 76 17 110/72 (85) 97 09/09/17 21:07 98.2 78 18 125/72 (89) 97 09/09/17 15:23 98.0 106 18 148/84 (105) 99 09/09/17 11:24 98.6 80 18 118/70 (86) 97 I/O 09/09/17 09/09/17 09/09/17 09/10/17 09/10/17 09/10/17 07:00 15:00 23:00 07:00 15:00 23:00 Intake Total 200 ml Balance 200 ml Intake Oral 200 ml # Voids 3 Result Diagram: 09/09/17 0635 09/09/17 0635 Imaging Last Impressions Thoracic Spine MRI 09/09/17 0000 Signed Impressions: Service Date/Time: Saturday, September 09, 2017 08:10 - CONCLUSION: No abnormality is identified within the thoracic spine. Degenerative change is seen within the cervical spine and within the lumbar spine contribute to areas of spinal canal narrowing.. Iram Valadez MD Cervical Spine MRI 09/09/17 0000 Signed Impressions: Service Date/Time: Saturday, September 09, 2017 08:10 - CONCLUSION: Exaggerated lordosis of the cervical spine with multilevel severe degenerative disc changes resulting in spinal canal narrowing from C4-C6 without evidence of cord compression. Multiple levels of neural foraminal narrowing. No cord abnormality noted.. Iram Valadez MD Brain MRI 09/08/17 0000 Signed Impressions: Service Date/Time: Friday, September 08, 2017 14:26 - CONCLUSION: 1. No acute intracranial abnormality. 2. Mild enhancement of the dura particularly overlying the right frontal lobe. This likely is postsurgical in nature. I cannot completely exclude an acute meningitis but this is felt much less likely. 3. Mild prominence of the ventricular system which is minimally larger from the prior 2016 exams. This may relate to more centralized forms of atrophy. No obstructing mass observed. Ad Marc Jr., MD Head CT 09/07/17 0000 Signed Impressions: Service Date/Time: August 22:04 - CONCLUSION: 1. No bleed or other acute intracranial abnormality. 2. Left occipital scalp hematoma. 3. Old right frontal lobe infarct. 4. Mild diffuse ventriculomegaly has developed since the prior study. Robin Escudero MD Cervical Spine CT 09/07/17 0000 Signed Impressions: Service Date/Time: August 22:04 - CONCLUSION: Intact cervical spine. Multilevel degenerative changes are again noted and appear similar to the comparison CT. Robin Escudero MD Objective Remarks GENERAL: This is a thin male patient, in no apparent distress.Temporal wasting noted bilaterally. SKIN: No rashes. Cool and dry. Bilateral upper extremities with scattered bruising in various stages of healing. States he's suffered easy bruising since TBI. CARDIOVASCULAR: Regular rate and rhythm without murmurs, gallops, or rubs. RESPIRATORY: Clear to auscultation. Breath sounds equal bilaterally. No wheezes , rales, or rhonchi. GASTROINTESTINAL: Abdomen soft, non-tender, nondistended. No guarding. MUSCULOSKELETAL: Extremities without clubbing, cyanosis, or edema. No calf tenderness. NEUROLOGICAL: Awake and alert. Moving all extremity Procedures none A/P Problem List: (1) NPH (normal pressure hydrocephalus) ICD Code: G91.2 - (Idiopathic) normal pressure hydrocephalus (2) Cerebral ventriculomegaly ICD Code: G93.89 - Other specified disorders of brain (3) Seizure disorder ICD Code: G40.909 - Epilepsy, unspecified, not intractable, without status epilepticus (4) Occipital scalp laceration ICD Code: S01.01XA - Laceration without foreign body of scalp, initial encounter Status: Acute Assessment and Plan Mr. Bartlett is a 62 y/o male with a history of TBI with subsequent seizures who presented to the ER on 09/07/16 following a fall at home. He suffered a scalp laceration and presented to the ED. He denies syncopal episode and chest pain or sob prior to fall. A head CT was performed showing mild diffuse ventriculomegaly and the patient also reports increasing sense of imbalance and dizziness as well as multiple falls over the past few weeks and was admitted for observation and neurology consultation to evaluate for NPH. Ventriculomegaly Recent falls - Head CT - no bleeding or other intracranial abnormalities; left occipital scalp hematoma; old right frontal lobe infarct; mild diffuse ventriculomegaly. Brain MRI with no significant hydrocephalus - Consult neurology - assistance appreciated. Cervical and thoracic spine MRI with no cord compression. Follow-up pending RPR - Neuro checks and VS q4h. Fall precautions. Physical therapy evaluation recommends rehabilitation Seizures - Continue home AED - Seizure precautions - Lorazepam 1 mg q15 mins seizure activity Left occipital scalp laceration - sutured in ED - monitor DVT prophylaxis - SCDs/TEDs . Discharge Planning Discharge patient to care home facility Condition on discharge: Improved Regular Diet as tolerated Ad Mariel activity no driving Rx written: None Follow-up with primary care physician and neurology. Follow-up pending RPR Problem Qualifiers (1) Occipital scalp laceration: Qualified Codes: S01.01XA - Laceration without foreign body of scalp, initial encounter Valdo Oswald MD Sep 10, 2017 10:42
[2017-09-10 11:46] VITALS: BP 130/61; PULSE 91; RESP 18; TEMP 97; O2SAT 99
[2017-09-10] MEDS: NEOMYCIN/POLYMYXIN/BACITRACIN OINT 15 GM TUBE TOPICAL SCH (15:32)
[2017-09-10 17:58] VITALS: BP 127/71; PULSE 80; RESP 18; TEMP 97.8; O2SAT 97
[2017-09-10 20:00] VITALS: BP 120/71; PULSE 87; RESP 18; TEMP 97.4; O2SAT 98
[2017-09-10] MEDS: traZODone HCL 100 MG TAB PO SCH (20:09)
[2017-09-11 00:16] VITALS: BP 125/68; PULSE 87; RESP 18; TEMP 97.6; O2SAT 98
[2017-09-11 04:14] VITALS: BP 110/68; PULSE 79; RESP 18; TEMP 97.8; O2SAT 95
[2017-09-11] MEDS: PHENYTOIN SODIUM 100 MG CAP PO SCH (05:49)
[2017-09-11 08:04] VITALS: BP 113/68; PULSE 76; RESP 18; TEMP 98.3; O2SAT 97
[2017-09-11] MEDS: levETIRAcetam 500 MG TAB PO SCH (09:00)
--- NOTE | 2017-09-11 09:10 | HHI.PR ---
Subjective Remarks Follow up for ventriculomegaly, gait instability. The patient denies any headache, lightheadedness, or dizziness today. He states he has been ambulating with a walker. He has no other medical complaints at this time. Objective Vitals Vital Signs Date Time Temp Pulse Resp B/P (MAP) Pulse Ox O2 Delivery O2 Flow Rate FiO2 09/11/17 08:04 98.3 76 18 113/68 (83) 97 09/11/17 04:14 97.8 79 18 110/68 (82) 95 09/11/17 00:16 97.6 87 18 125/68 (87) 98 09/10/17 20:00 97.4 87 18 120/71 (87) 98 09/10/17 17:58 97.8 80 18 127/71 (89) 97 09/10/17 11:46 97.0 91 18 130/61 (84) 99 I/O 09/10/17 09/10/17 09/10/17 09/11/17 09/11/17 09/11/17 07:00 15:00 23:00 07:00 15:00 23:00 Intake Total 200 ml Balance 200 ml Intake Oral 200 ml # Voids 3 3 Result Diagram: 09/09/17 0635 09/09/17 0635 Imaging Last Impressions Thoracic Spine MRI 09/09/17 0000 Signed Impressions: Service Date/Time: Saturday, September 09, 2017 08:10 - CONCLUSION: No abnormality is identified within the thoracic spine. Degenerative change is seen within the cervical spine and within the lumbar spine contribute to areas of spinal canal narrowing.. Iram Valadez MD Cervical Spine MRI 09/09/17 0000 Signed Impressions: Service Date/Time: Saturday, September 09, 2017 08:10 - CONCLUSION: Exaggerated lordosis of the cervical spine with multilevel severe degenerative disc changes resulting in spinal canal narrowing from C4-C6 without evidence of cord compression. Multiple levels of neural foraminal narrowing. No cord abnormality noted.. Iram Valadez MD Brain MRI 09/08/17 0000 Signed Impressions: Service Date/Time: Friday, September 08, 2017 14:26 - CONCLUSION: 1. No acute intracranial abnormality. 2. Mild enhancement of the dura particularly overlying the right frontal lobe. This likely is postsurgical in nature. I cannot completely exclude an acute meningitis but this is felt much less likely. 3. Mild prominence of the ventricular system which is minimally larger from the prior 2016 exams. This may relate to more centralized forms of atrophy. No obstructing mass observed. Ad Marc Jr., MD Head CT 09/07/17 0000 Signed Impressions: Service Date/Time: August 22:04 - CONCLUSION: 1. No bleed or other acute intracranial abnormality. 2. Left occipital scalp hematoma. 3. Old right frontal lobe infarct. 4. Mild diffuse ventriculomegaly has developed since the prior study. Robin Escudero MD Cervical Spine CT 09/07/17 0000 Signed Impressions: Service Date/Time: August 22:04 - CONCLUSION: Intact cervical spine. Multilevel degenerative changes are again noted and appear similar to the comparison CT. Robin Escudero MD Objective Remarks GENERAL: Thin male patient in NAD. SKIN: Warm and dry. No rash. Scattered ecchymosis throughout extremities. HEENT: Normocephalic. Atraumatic. Bitemporal wasting noted. Pupils equal and round. Mucous membranes pink and moist. NECK: Supple. Trachea midline. CARDIOVASCULAR: Regular rate and rhythm. S1, S2 noted. No murmur appreciated. RESPIRATORY: No accessory muscle use. Clear to auscultation. Breath sounds equal bilaterally. GASTROINTESTINAL: Abdomen soft, non-tender, nondistended. Normoactive bowel sounds x4. MUSCULOSKELETAL: No obvious deformities. Extremities without clubbing, cyanosis , or edema. NEUROLOGICAL: Awake and alert. No obvious cranial nerve deficits. Motor grossly within normal limits. 5/5 muscle strength in bilateral upper and lower extremities. Normal speech. PSYCHIATRIC: Odd affect, pleasant; insight and judgment normal. Procedures none Medications and IVs Current Medications Medications (Trade) Dose Ordered Sig/Alice Route Start Time Stop Time Status Last Admin (NS Flush) 2 ml UNSCH PRN IV FLUSH 09/08/17 03:30 (NS Flush) 2 ml BID IV FLUSH 09/08/17 09:00 09/11/17 09:29 (Tylenol) 650 mg Q4H PRN PO 09/08/17 03:30 09/10/17 23:44 (Zofran Inj) 4 mg Q6H PRN IVP 09/08/17 03:30 (Narcan Inj) 0.4 mg UNSCH PRN IV PUSH 09/08/17 03:30 (Ativan Inj) 1 mg Q15M PRN IV PUSH 09/08/17 05:30 (Neosporin Oint) 1 applic DAILY TOPICAL 09/08/17 09:00 09/11/17 09:30 (CeleXA) 10 mg DAILY PO 09/08/17 09:00 09/11/17 09:29 (Keppra) 750 mg BID PO 09/08/17 09:00 09/11/17 09:00 (Dilantin) 300 mg DAILY@0600 PO 09/08/17 09:00 09/11/17 05:49 (Dilantin) 100 mg HS PO 09/08/17 21:00 09/10/17 20:08 (Desyrel) 100 mg HS PO 09/08/17 21:00 09/10/17 20:09 (Percocet 5-325 Mg) 1 tab Q6H PRN PO 09/08/17 08:00 09/09/17 17:46 (Pill Splitter) 1 ea UNSCH PRN OTHER 09/08/17 08:45 A/P Problem List: (1) NPH (normal pressure hydrocephalus) ICD Code: G91.2 - (Idiopathic) normal pressure hydrocephalus (2) Cerebral ventriculomegaly ICD Code: G93.89 - Other specified disorders of brain (3) Seizure disorder ICD Code: G40.909 - Epilepsy, unspecified, not intractable, without status epilepticus (4) Occipital scalp laceration ICD Code: S01.01XA - Laceration without foreign body of scalp, initial encounter Status: Acute Assessment and Plan 62 y/o male with a history of TBI with subsequent seizures who presented to the ER on 09/07/16 following a fall at home. He suffered a scalp laceration. He denies syncopal episode and chest pain or sob prior to fall. A head CT was performed showing mild diffuse ventriculomegaly and the patient also reports increasing sense of imbalance and dizziness as well as multiple falls over the past few weeks and was admitted for observation and neurology consultation to evaluate for NPH. Ventriculomegaly, Recent falls: - Head CT - no bleeding or other intracranial abnormalities; left occipital scalp hematoma; old right frontal lobe infarct; mild diffuse ventriculomegaly. - Brain MRI images reviewed, no significant hydrocephalus - Cervical and thoracic spine MRI with no cord compression. - Consult neurology - assistance appreciated. - Follow-up pending RPR - Neuro checks and VS q4h. Fall precautions. Physical therapy evaluation recommends rehabilitation - Case management to assist with discharge planning - assistant accounting manager had long discussion with POAliya in the presence of me, patient was denied to [facility] and POA does not want the patient going to any other SNF, the patient wants to go home and POA agrees with this; upon review of PT note, the patient is actually walking 200+ feet with walker both yesterday and today. POA requesting HHC only. assistant accounting manager arranging HHC. The patient is medically stable for discharge. Seizures - Continue home dilantin and keppra - Seizure precautions - Lorazepam 1 mg q15 mins seizure activity Left occipital scalp laceration - sutured in ED - wound care - monitor DVT prophylaxis - SCDs/TEDs Discharge Planning See discharge summary. Problem Qualifiers (1) Occipital scalp laceration: Qualified Codes: S01.01XA - Laceration without foreign body of scalp, initial encounter Anne Savage PA-C Sep 11, 2017 9:10 am
[2017-09-11] MEDS: CITALOPRAM HYDROBROMIDE 20 MG TAB PO SCH (09:29)
[2017-09-11] MEDS: SODIUM CHLORIDE 0.9% FLUSH 10 ML FLUSH IV FLUSH SCH (09:29)
[2017-09-11] MEDS: NEOMYCIN/POLYMYXIN/BACITRACIN OINT 15 GM TUBE TOPICAL SCH (09:30)
[2017-09-11 10:39] LABS: RPR SCREEN FOR REFLEX NON-REACTIVE (NON-REACTVE)
--- NOTE | 2017-09-11 11:59 | HHI.FF ---
Face to Face Verification Diagnosis: (1) Gait instability (2) Seizure disorder (3) Cerebral ventriculomegaly (4) Occipital scalp laceration (5) Traumatic brain injury (6) Head injury (7) Ataxia Physical Therapy Order: Evaluate and Treat, Improve ambulation, Strength and gait training Home Health Nursing Order: Medical education Signs/symptoms of disease process Nursing assessment with vital signs Dive Supervisor Order: To Evaluate: Living conditions/environment, Support services Order: To Provide: Long range planning, Community services I have seen patient Giovanni Bartlett on 09/11/17. My clinical findings support the need for the requested home health care services because: Ltd mobility - disease progression Deconditioned w/ increased weakness Med compliance is questionable Limited ability to care for self Impaired cognition/judgement High risk of falls I certify that my clinical findings support that this patient is homebound because: Impaired cognitive ability/safety Unsteady gait/balance Unsafe to leave home unassisted Unable to use public transportation Anne Savage PA-C Sep 11, 2017 11:59 am
[2017-09-11 12:23] VITALS: BP 119/74; PULSE 93; RESP 18; TEMP 98.1; O2SAT 100
[2017-09-11] MEDS: oxyCODONE/ACETAMINOPHEN 5 MG/325 MG TAB PO PRN (12:27)
--- NOTE | 2017-09-11 12:30 | HHI.DS ---
Discharge Summary Admission Date Sep 08, 2017 at 1:28 am Discharge Date: Sep 11, 2017 Admitting Diagnosis Ventriculomegaly, possible NPH (1) NPH (normal pressure hydrocephalus) ICD Code: G91.2 - (Idiopathic) normal pressure hydrocephalus (2) Cerebral ventriculomegaly ICD Code: G93.89 - Other specified disorders of brain (3) Seizure disorder ICD Code: G40.909 - Epilepsy, unspecified, not intractable, without status epilepticus (4) Occipital scalp laceration ICD Code: S01.01XA - Laceration without foreign body of scalp, initial encounter Status: Acute Procedures none Brief History - From Admission Mr. Bartlett is a 62 y/o male with a history of TBI with subsequent seizures and CVA with residual left sided weakness who presented to the ER on 09/07/16 following a fall at home. He suffered a scalp laceration and presented to the ED. He denies syncopal episode and chest pain or sob prior to fall. A head CT was performed showing mild diffuse ventriculomegaly and the patient also reports increasing sense of imbalance and dizziness as well as multiple falls over the past few weeks and was admitted for observation and neurology consultation to evaluate for NPH. The patient denies any recent fever, chills, chest pain, shortness of breath, nausea, vomiting, or diarrhea. CBC/BMP: 09/09/17 0635 09/09/17 0635 Significant Findings Laboratory Tests Test 09/09/17 06:35 09/10/17 07:00 Red Blood Count 3.70 MIL/MM3 (4.50-5.90) Hemoglobin 12.4 GM/DL (13.0-17.0) Hematocrit 36.1 % (39.0-51.0) Monocytes (%) (Auto) 15.1 % (0.0-8.0) Creatinine 0.50 MG/DL (0.60-1.30) Imaging Last Impressions Thoracic Spine MRI 09/09/17 0000 Signed Impressions: Service Date/Time: Saturday, September 09, 2017 08:10 - CONCLUSION: No abnormality is identified within the thoracic spine. Degenerative change is seen within the cervical spine and within the lumbar spine contribute to areas of spinal canal narrowing.. Iram Valadez MD Cervical Spine MRI 09/09/17 0000 Signed Impressions: Service Date/Time: Saturday, September 09, 2017 08:10 - CONCLUSION: Exaggerated lordosis of the cervical spine with multilevel severe degenerative disc changes resulting in spinal canal narrowing from C4-C6 without evidence of cord compression. Multiple levels of neural foraminal narrowing. No cord abnormality noted.. Iram Valadez MD Brain MRI 09/08/17 0000 Signed Impressions: Service Date/Time: Friday, September 08, 2017 14:26 - CONCLUSION: 1. No acute intracranial abnormality. 2. Mild enhancement of the dura particularly overlying the right frontal lobe. This likely is postsurgical in nature. I cannot completely exclude an acute meningitis but this is felt much less likely. 3. Mild prominence of the ventricular system which is minimally larger from the prior 2016 exams. This may relate to more centralized forms of atrophy. No obstructing mass observed. Ad Marc Jr., MD Head CT 09/07/17 Signed Impressions: Service Date/Time: August 22:04 - CONCLUSION: 1. No bleed or other acute intracranial abnormality. 2. Left occipital scalp hematoma. 3. Old right frontal lobe infarct. 4. Mild diffuse ventriculomegaly has developed since the prior study. Robin Escudero MD Cervical Spine CT 09/07/17 0000 Signed Impressions: Service Date/Time: August 22:04 - CONCLUSION: Intact cervical spine. Multilevel degenerative changes are again noted and appear similar to the comparison CT. Robin Escudero MD PE at Discharge GENERAL: Thin male patient in NAD. SKIN: Warm and dry. No rash. Scattered ecchymosis throughout extremities. HEENT: Normocephalic. Atraumatic. Bitemporal wasting noted. Pupils equal and round. Mucous membranes pink and moist. NECK: Supple. Trachea midline. CARDIOVASCULAR: Regular rate and rhythm. S1, S2 noted. No murmur appreciated. RESPIRATORY: No accessory muscle use. Clear to auscultation. Breath sounds equal bilaterally. GASTROINTESTINAL: Abdomen soft, non-tender, nondistended. Normoactive bowel sounds x4. MUSCULOSKELETAL: No obvious deformities. Extremities without clubbing, cyanosis , or edema. NEUROLOGICAL: Awake and alert. No obvious cranial nerve deficits. Motor grossly within normal limits. 5/5 muscle strength in bilateral upper and lower extremities. Normal speech. PSYCHIATRIC: Odd affect, pleasant; insight and judgment normal. Hospital Course 62 y/o male with a history of TBI with subsequent seizures who presented to the ER on 09/07/16 following a fall at home. He suffered a scalp laceration. He denies syncopal episode and chest pain or sob prior to fall. A head CT was performed showing mild diffuse ventriculomegaly and the patient also reports increasing sense of imbalance and dizziness as well as multiple falls over the past few weeks and was admitted for observation and neurology consultation to evaluate for NPH. Patient admitted for frequent falls and concern for NPH with Ventriculomegaly. Patient with hx of TBI and gait instability at baseline. Head CT images reviewed , showed no bleeding or other intracranial abnormalities; left occipital scalp hematoma; old right frontal lobe infarct; mild diffuse ventriculomegaly. Brain MRI images reviewed, no significant hydrocephalus. Cervical and thoracic spine MRI with no cord compression. Consult neurology, no further intervention. Follow -up pending RPR. Neuro checks. Fall precautions. Physical therapy evaluation, initially recommended rehab. Case management to assist with discharge planning, attempted placement at [facility] however was denied. client service and consulting manager had long discussion with MELONIE in the presence of me, patient was denied to [facility] and POA does not want the patient going to any other SNF, the patient wants to go home and POAliya agrees with this; upon review of PT note, the patient is actually walking 200+ feet with walker both yesterday and today. POA requesting HHC only and refuses SNF at this time. client service and consulting manager arranging HHC. The patient is medically stable for discharge. Seizures: no seizures throughout admission. Continued home dilantin and keppra. Left occipital scalp laceration: sutured in ED on 09/08. Have removed in 10 days. Wound care Pt Condition on Discharge: Stable Discharge Disposition: Disch w/ Home Health Serv Discharge Time: > 30 minutes Discharge Instructions DIET: Follow Instructions for: Heart Healthy Diet Activities you can perform: Regular-No Restrictions Follow up Referrals: Neurology - 1 Week with John Gray MD PCP Follow-up - 1 Week with [facility] New Medications: [id number] (Triple Antibiotic 3.5-400-5000) 3.5 Mg-400 Unit-5 ,000 Unit/Gram Oin 1 APPLIC TOPICAL BID for wound, #1 TUBE apply to head wound twice a day x1week. Continued Medications: Citalopram (Citalopram) 10 Mg Tab 10 MG PO DAILY for Control Depression, #30 TAB 0 Refills Levetiracetam (Keppra) 750 Mg Tab 750 MG PO BID for Control Seizures, #60 TAB 0 Refills Meloxicam (Meloxicam) 7.5 Mg Tab 7.5 MG PO DAILY for Arthritis Pain, TAB 0 Refills Phenytoin Extended (Dilantin) 100 Mg Cap 3 TAB PO DAILY@0600 for Control Seizures, #90 CAP 0 Refills Phenytoin Extended (Dilantin) 100 Mg Cap 100 MG PO HS for Control Seizures, #90 CAP 0 Refills Trazodone (Trazodone) 100 Mg Tablet 100 MG PO HS for Control Depression, #30 TAB 0 Refills Anne Savage PA-C Sep 11, 2017 12:30 pm
== END 2017-09-11 15:39 | disposition home or self-care (01) ==
LOC: NEPE 20:54 → NEDA 09-08 01:28 → NEPHCDU 09-08 16:27
PROVIDERS: ADMIT Hospitalist; ATTEND Hospitalist
DX: S01.01XA Laceration without foreign body of scalp, initial encounter (principal); G91.2 (Idiopathic) normal pressure hydrocephalus; G93.89 Other specified disorders of brain; G40.909 Epilepsy, unspecified, not intractable, without status epilepticus; I69.354 Hemiplegia and hemiparesis following cerebral infarction affecting left non-dominant side; W19.XXXA Unspecified fall, initial encounter; Z87.820 Personal history of traumatic brain injury; Z91.81 History of falling; R29.6 Repeated falls
CPT/HCPCS: 12001; 70450; 70553; 72125; 72141; 72146; 80048; 80053; 80185; 82550; 82607; 85025; 86592; 97110; 97116; 97162; 97530; 99285; A9579; G0378; G8987; G8988